=== PATIENT | male | born 1960 | race Caucasian/White ===

== ENCOUNTER → 2016-09-13 | Outpatient (CLI) | payer BC | END | disposition home or self-care (01) | LOC: NUC 07:09 | DX: K21.9 Gastro-esophageal reflux disease without esophagitis (principal); R14.0 Abdominal distension (gaseous); K31.84 Gastroparesis; K59.00 Constipation, unspecified; Z86.010 Personal history of colon polyps | CPT/HCPCS: 78264; A9541 ==